=== PATIENT | female | born 1965 | race Caucasian/White ===

== ENCOUNTER → 2017-07-25 | Outpatient (CLI) | payer BC ==
[~2017-07-25] MED LIST: ASPIR 8181 MG PO; BLACK COHOSH40 MG PO; CIPRO500 MG PO; LISINOPRIL2.5 MG PO; METOPROLOL TART25 MG PO; PROBIOTIC & AC1 EACH PO; SIMVASTATIN20 MG PO; [UNRECOGNIZED DRUG - OTHER]
--- NOTE | 2017-07-25 21:31 | Diagnostic Imaging Report ---
Exam: Lumbar spine MRI without IV contrast History: Low back pain Comparison studies: None Technique: Sagittal and axial T2 , sagittal T1 and IR, axial spin density oblique. Coronal T2. Intravenous contrast: None Findings: Number of lumbar vertebral bodies: 5. Alignment: Mild thoracolumbar curvature convex to the left. Normal lumbar lordosis. Soft tissues: No T2 hyperintense inflammatory changes. Paraspinal muscles: No signal abnormalities. Well-preserved. No atrophic changes Lower thoracic cord: Normal in signal and morphology. The tip of the conus is at L1. Cauda equina: No masses. No arachnoiditis. Vertebrae: No compression fractures or infection. There are a few scattered incidental T1 hyperintense meningiomas. A 10 mm STIR hyperintense/mildly T1 hypointense lesion in the L2 vertebral body is also most likely an incidental hemangioma. Degenerative changes: L1-L2: No abnormalities. L2-L3: Mild loss of T2 disc signal. Symmetric disc bulge does not result in significant canal stenosis. Patent foramina. L3-L4: Mild loss of T2 disc signal. Symmetric disc bulge does not result in significant canal stenosis. Patent foramina. Mild right facet arthrosis without associated facet synovitis. L4-L5: Moderate loss of T2 disc signal. Small symmetric disc bulge does not result in significant canal stenosis. Patent foramina. L5-S1: Mild loss of disc height and loss of T2 disc signal. There is mild reactive endplate edema along the right greater than left lateral endplates. Disc bulge with superimposed 9 mm x 4 mm x 8 mm (SI x AP x TV) left central disc extrusion has slightly migrated inferiorly within along the left ventral epidural space posterior to the S1 vertebral body and abuts but does not compress the left S1 nerve root. No significant canal or foraminal stenosis. IMPRESSION: 1. Mildly degenerated disks from L2 to S1, worse at L5-S1 where there is also mild degenerative endplate edema. 2. Small L5-S1 disc extrusion abuts but does not compress the left S1 nerve root. 3. Small annular fissure at L4-L5. 4. No significant canal or foraminal stenosis. Signed by: Dr. Terrence Yoo M.D. on 07/25/2017 9:27 PM
== END ==
LOC: MRI 14:20
PROVIDERS: ATTEND Family Medicine
DX: M54.5 Low back pain (principal); G89.29 Other chronic pain; M51.36 Other intervertebral disc degeneration, lumbar region
CPT/HCPCS: 72148

== ENCOUNTER 2017-09-16 14:45 | Outpatient (RCR) | payer BC | END 2017-09-19 | LOC: PT 14:45 | PROVIDERS: ATTEND Neurological Surgery | DX: M51.17 Intervertebral disc disorders with radiculopathy, lumbosacral region (principal); M54.5 Low back pain; M53.86 Other specified dorsopathies, lumbar region; M25.552 Pain in left hip; M62.81 Muscle weakness (generalized) | CPT/HCPCS: 97139 ==

== ENCOUNTER 2022-06-15 20:33 | Emergency (ER) | payer BC, OTHER ==
[~2022-06-15] VITALS: Ht 167.6 cm; Wt 90.3 kg
[2022-06-15 21:47] LABS: BASOPHILS % 0.5 % (0.0-1.0); EOSINOPHILS # (AUTO) 0.1 (0.0-0.4); EOSINOPHILS % 1.4 % (0.0-6.0); HEMATOCRIT 39.1 % (34.2-44.1); HEMOGLOBIN 13.4 g/dL (12.0-16.0); LYMPHOCYTES # (AUTO) 2.7 (1.0-3.2); LYMPHOCYTES % 33.5 % (18.0-39.1); MEAN CORPUSCULAR HEMOGLOBIN 29.6 pg (28-32); MEAN CORPUSCULAR HGB CONC 34.3 g/dL (31-35); MEAN CORPUSCULAR VOLUME 86.5 fL (81-99); MONOCYTES # (AUTO) 0.6 (0.2-0.8); MONOCYTES % 7.1 % (4.4-11.3); NEUTROPHILS # (AUTO) 4.6 (2.1-6.9); NEUTROPHILS % 57.3 % (38.7-80.0); PLATELET COUNT 349 x10e3/uL (140-360); RED BLOOD COUNT 4.52 x10e6/uL (3.6-5.1); RED CELL DISTRIBUTION WIDTH 12.9 % (11.7-14.4)
[2022-06-15 21:48] LABS: CLARITY,URINE CLEAR (CLEAR); COLOR,URINE YELLOW (YELLOW); KETONES,URINE NEGATIVE (NEGATIVE); LEUKOCYTE ESTERASE ,URINE NEGATIVE (NEGATIVE); NITRITE,URINE NEGATIVE (NEGATIVE); PROTEIN,URINE DIPSTICK NEGATIVE (NEGATIVE); URINE UROBILINOGEN 0.2 mg/dL (0.2 - 1)
[2022-06-15 21:52] LABS: BACTERIA,URINE FEW /HPF; EPITHELIAL CELLS,URINE FEW /LPF; RBC,URINE 0-5 /HPF (0-5); WBC,URINE (MAN) 0-5 /HPF (0-5)
[2022-06-15 22:02] LABS: ALBUMIN/GLOBULIN RATIO 1.1 (0.8-2.0); ANION GAP 13.3 mmol/L (8-16); CALCIUM 10.1 mg/dL (8.4-10.2); CREATININE, SERUM 0.79 mg/dL (0.57-1.11); POTASSIUM 4.3 mmol/L (3.5-5.1)
== END 2022-06-15 22:25 | disposition home or self-care (01) ==
LOC: ER 20:44
DX: S39.011A Strain of muscle, fascia and tendon of abdomen, initial encounter (principal); Y93.01 Activity, walking, marching and hiking; Y92.89 Other specified places as the place of occurrence of the external cause; Z87.19 Personal history of other diseases of the digestive system
CPT/HCPCS: 36415; 80053; 81001; 85025; 99283